=== PATIENT | female | born 1955 | race Caucasian/White ===

== ENCOUNTER 2016-07-09 11:45 | Emergency (ER) | payer BC, OTHER ==
--- NOTE | ~2016-07-09 | CR173 ---
[facility] A Service of [facility] & [facility] / [facility] RADIOLOGY TEXT RESULTS PATIENT: FATIMAH BASSETT LOCATION: CFTX : 54 UNIT #: [id number] AGE: [address]: SHERICE BOYD SEX: F ORDER DR: [id number] [facility] [address] [place], [place] [address] [id number] E MR#: [id number] Acc #: [id number] NAME: FATIMAH BASSETT. : 1955 SEX: F STUDY DATE/TIME: 07/09/2016 11:18 UNIT: [facility] ROOM: STUDY DESCRIPTION: CR Knee 3 Views Rt Attending Physician: Sherice Boyd Aprn Ordering Physician: Ed Shawn Parra M.D. Primary Care Physician: Buck Milan M.D. MEDICAL IMAGING REPORT This report is preliminary unless electronic signature is present EXAM Right knee HISTORY Pain and swelling since last night after fall FINDINGS 3 views of the right knee were obtained. There is mild narrowing of the medial joint compartment with osteophyte formation from the femoral condyle and tibial plateau. There is some spurring of the patella and there is a small effusion. IMPRESSION 1. Degenerative change in the patellofemoral joint and the medial joint compartment. 2. Small effusion. 3. Otherwise, normal. Dictated by... Fredy Paz M.D. THIS IS AN ELECTRONICALLY VERIFIED REPORT Fredy Paz M.D. at 07/09/2016 3:13 PM FEL/to TD: 07/09/2016 14:11 JOB #: [id number] MEDICAL IMAGING REPORT COPY
--- NOTE | ~2016-07-09 | CR172 ---
[facility] A Service of [facility] & [facility] RADIOLOGY TEXT RESULTS PATIENT: FATIMAH BASSETT LOCATION: CFTX : 54 UNIT #: [id number] AGE: [address]: SHERICE BOYD SEX: F ORDER DR: [id number] [facility] [address] [place], [place] [address] [id number] E MR#: [id number] Acc #: [id number] NAME: FATIMAH BASSETT. : 1955 SEX: F STUDY DATE/TIME: 07/09/2016 11:19 UNIT: [facility] ROOM: STUDY DESCRIPTION: CR Knee 3 Views Lt Attending Physician: Sherice Boyd Aprn Ordering Physician: Jorge Driscoll M.D. Primary Care Physician: Buck Milan M.D. MEDICAL IMAGING REPORT This report is preliminary unless electronic signature is present EXAM Left knee INDICATION Left knee pain after fall last night with injury. FINDINGS AP and lateral views of the left knee were obtained. There is a left knee prosthesis present compared to 12/21/2014. There is no fracture or effusion. IMPRESSION Status post left knee replacement. Otherwise normal. Dictated by... Fredy Paz M.D. THIS IS AN ELECTRONICALLY VERIFIED REPORT Fredy Paz M.D. at 07/09/2016 3:13 PM JANELLE/mayte TD: 07/09/2016 14:19 JOB #: [id number] MEDICAL IMAGING REPORT COPY
--- NOTE | ~2016-07-09 | CR253 ---
[facility] A Service of [facility] & [facility] RADIOLOGY TEXT RESULTS PATIENT: FATIMAH BASSETT LOCATION: CFTX : 54 UNIT #: [id number] AGE: [address]: SHERICE BOYD SEX: F ORDER DR: [id number] [facility] [address] [place], [place] [address] [id number] E MR#: [id number] Acc #: [id number] NAME: FATIMAH BASSETT. : 1955 SEX: F STUDY DATE/TIME: 07/09/2016 11:18 UNIT: [facility] ROOM: STUDY DESCRIPTION: CR Tibia and Fibula 2 Views Rt Attending Physician: Sherice Boyd Aprn Ordering Physician: Ed Doctor [id number] [facility] Primary Care Physician: Buck Milan M.D. MEDICAL IMAGING REPORT This report is preliminary unless electronic signature is present EXAM Right tibia and fibula. HISTORY Pain and swelling since last night after falling. FINDINGS There is no evidence of fracture, dislocation, or radiopaque foreign body. IMPRESSION Normal right tibia and fibula. Dictated by... Fredy Paz M.D. THIS IS AN ELECTRONICALLY VERIFIED REPORT Fredy Paz M.D. at 07/09/2016 3:13 PM JANELLE/sylwia TD: 07/09/2016 14:09 JOB #: [id number] MEDICAL IMAGING REPORT COPY
[~2016-07-09 11:45] MED LIST: ACETAMINOPHEN PO; ADVAIR INH; ALAVERT10 MG PO; ALBUTEROL17 GM INH; ALBUTEROL17 GM NEB; ALPRAZOLAM PO; AMITRYPTYLINE PO; ASPIRIN81 MG PO; CELEXA PO; CIPRO PO; COREG; CRESTOR5 MG; DICLOFENAC SODI50 MG PO; DUONEB 2.5-0.5 M3 ML NEB; EC-NAPROSYN500 MG PO; HCTZ PO; KCL PO; KETOPROFEN PO; MOBIC; NEURONTIN; PRISTIQ50 MG; REGLAN PO; ROBAXIN PO; TYLOX1 CAP 5/50 PO; ZESTORETIC; ZOCOR; ZOFRAN8 MG PO
[2016-09-29] MEDS ORDERED: GABAPENTIN300 M2 PO (10:14)
[2016-09-29] MEDS ORDERED: ASPIRIN81 M2 PO (10:15)
[2016-09-29] MEDS ORDERED: COMBIVENT RESPIM4 GM INH (10:29)
[2016-10-08] MEDS ORDERED: PRAVASTATIN SOD40 MG PO (16:35)
[2016-10-08] MEDS ORDERED: PRINIVIL10 MG PO (16:35)
[2016-10-08] MEDS ORDERED: AMITRYPTYLINE PO (16:36)
[2016-10-08] MEDS ORDERED: CYMBALTA30 M1 PO (16:36)
[2016-10-08] MEDS ORDERED: MOBIC15 MG PO (16:36)
[2016-10-08] MEDS ORDERED: ROBAXIN500 MG PO (16:37)
== END 2016-07-09 12:48 | disposition home or self-care (01) ==
LOC: CFTX 11:45
DX: S80.02XA Contusion of left knee, initial encounter (principal); S80.01XA Contusion of right knee, initial encounter; M25.461 Effusion, right knee; E78.5 Hyperlipidemia, unspecified; I10 Essential (primary) hypertension; Z96.652 Presence of left artificial knee joint; W19.XXXA Unspecified fall, initial encounter; Y92.009 Unspecified place in unspecified non-institutional (private) residence as the place of occurrence of the external cause
CPT/HCPCS: 29530; 73562; 73590; 99284

== ENCOUNTER → 2016-09-29 | Outpatient (CLI) | payer BC ==
[~2016-09-29] MED LIST changes: +ASPIRIN81 M2 PO; +COMBIVENT RESPIM4 GM INH; +CYMBALTA30 M1 PO; +GABAPENTIN300 M2 PO; +MOBIC15 MG PO; +PERCOCET10 PO; +PRAVASTATIN SOD40 MG PO; +PRINIVIL10 MG PO; +ROBAXIN500 MG PO; +XARELTO10 MG PO
--- NOTE | ~2016-09-29 | EKG ---
PATIENT: FATIMAH BASSETT UNIT #: [id number] Ventricular Rate: 78 BPM Atrial Rate: 78 BPM P-R Interval: 168 ms QRS Duration: 88 ms Q-T Interval: 374 ms QTC Calculation(Bezet): 426 ms P [place]: 66 degrees Calculated R [place]: 25 degrees Calculated T [place]: 52 degrees Diagnosis Line: Normal sinus rhythm Diagnosis Line: Normal ECG Diagnosis Line: No previous ECGs available Diagnosis Line: Confirmed by SHANNEN DALE MD ([id number]) on Diagnosis Line: 10/01/2016 8:44:07 AM INTERPRETING MD: SUYAPA ASHFORD
[2016-09-29 10:30] LABS: HEMATOCRIT 36.5 % (35.0-45.0); HEMOGLOBIN 12.1 gm/dL (12.0-16.0); MEAN CELL VOLUME 88.7 FL (83-96); MEAN CORPUSCULAR HEMOGLOBIN 29.3 PG (28-34); MEAN PLATELET VOLUME 9.1 FL (6.5-11.5); RED BLOOD COUNT 4.12 X10e (3.90-5.30); RED CELL DISTRIBUTION WIDTH 12.8 % (11.0-15.5)
[2016-09-29 10:51] LABS: URINE APPEARANCE CLEAR; URINE BILIRUBIN NEG (NEG); URINE BLOOD NEG (NEG); URINE COLOR YELLOW; URINE GLUCOSE NEG (NEG); URINE KETONE NEG (NEG); URINE LEUKOCYTE ESTERASE TRACE (NEG); URINE NITRATE NEG (NEG); URINE PH 5.5 (5-8); URINE PROTEIN NEG (NEG); URINE SPECIFIC GRAVITY 1.014 (1.003-1.035); URINE UROBILINOGEN 0.2 MG/DL (NEG)
[2016-09-29 10:53] LABS: URBCS1 AUWI 0-2 /[HPF] (0-2); URINE BACTERIA AUWI NEG (NEGATIVE); URINE SQUAMOUS EPITHELIAL CELL NONE SEEN /[HPF]; UWBCS1 AUWI 0-2 (0-5)
[2016-09-29 10:54] LABS: CULTURE INDICATED? NO; URINE SOURCE CLEAN CATCH
[2016-09-29 10:59] LABS: BUN/CREATININE RATIO 28.33; CALCIUM SERUM 8.9 mg/dL (8.4-10.2); CREATININE SERUM 0.6 mg/dL (0.6-1.4); GLOM FILT RATE Estimated 98.4 mL/min (>60); POTASSIUM 3.6 mmol/L (3.5-5.1)
== END | disposition home or self-care (01) ==
LOC: CAMB 09:28
PROVIDERS: Orthopaedic Surgery
DX: Z01.818 Encounter for other preprocedural examination (principal); M17.11 Unilateral primary osteoarthritis, right knee; I10 Essential (primary) hypertension
CPT/HCPCS: 36415; 80048; 81003; 85027; 87070; 93005

== ENCOUNTER 2016-10-10 05:22 | Inpatient (IN) | payer BC ==
--- NOTE | ~2016-10-10 | DS ---
Unit #: [id number] #: [id number] Patient: FATIMAH BASSETT X Con Arnold MD DISCHARGE SUMMARY
--- NOTE | ~2016-10-10 | CO ---
Unit #: [id number] #: [id number] Patient: FATIMAH BASSETT [id number] [address] [place], [place] [address] [id number] I MR#: [id number] NAME: FATIMAH BASSETT ROOM: 463 Age: 60 Sex: F Admission Date: 10/10/2016 : 1955 Attending Physician: Rashawn Arnold M.D. Primary Care Physician: Buck Milan M.D. Consultation Date: 10/12/2016 CONSULTATION REPORT HISTORY OF PRESENT ILLNESS A 60-year-old white female with history of coronary artery disease, asthma, osteoarthritis, hyperlipidemia, major depressive disorder, hypertension, admitted on 10/10/2016 for an elective right total knee replacement, now currently on postop day #2. Consulted for hypotension, BP currently 97/65, symptomatic with orthostatic like symptoms, although, her heart rate is 75, but she is in bed. She has been afebrile. Her other vital signs were stable. CBC this morning shows hemoglobin of 10. There has been no postop BMP. She has no Luna catheter in. Preop EKG shows normal sinus rhythm. Her last dose of lisinopril was given at 2100 hours last night with a dose of 10 mg she is on no other antihypertensives but she is receiving large doses of narcotics and Benadryl for associated itching. Postop, she has had no other complaints. She has had some nausea, but no vomiting. She has had some flatus, but no bowel movement and has no other complaints at this time other than obviously the right knee pain which is in fair control with her current medications. ALLERGIES She has stated allergies to morphine, hydrocodone, Dilaudid, and codeine. MEDICATIONS Prior to admission; gabapentin 300 mg t.i.d., aspirin 81 mg daily, Combivent Respimat two puffs q.2 to 4 p.r.n., pravastatin 40 mg daily, Prinivil 10 mg daily, Cymbalta 30 mg daily, amitriptyline 10 mg q.h.s., Mobic 15 mg daily, Robaxin 500 mg t.i.d. p.r.n. PAST MEDICAL HISTORY She has a history of coronary artery disease, asthma, hyperlipidemia, hypertension, osteoarthritis, major depressive disorder. PAST SURGICAL HISTORY Previous left total knee replacement, right total knee replacement as above, she has had hiatal hernia repair, cholecystectomy, , carpel tunnel, tubal ligation. SOCIAL HISTORY Nonsmoker, nondrinker. No street drug use. Employed in the [employer]. PHYSICAL EXAMINATION GENERAL: She is awake, alert, oriented x3, in no acute distress. VITAL SIGNS: Afebrile, pulse 75, respirations 18, O2 saturation 90% on room air, blood pressure 97/65. HEENT: Unremarkable. Unit #: [id number] #: [id number] Patient: FATIMAH BASSETT NECK: Supple without JVD, bruits, adenopathy, or thyromegaly. CHEST: Clear to auscultation. HEART: Has regular rate and rhythm without any murmurs, rubs, or gallops. ABDOMEN: Soft, nondistended with somewhat tympanitic, but positive bowel sounds. No hepatosplenomegaly. EXTREMITIES: Showed no clubbing, cyanosis, or edema. The right knee is stressed at this time, but there is no distal edema. Her right foot is neurovascularly intact. DIAGNOSTIC STUDIES CARDIOVASCULAR STUDIES: Again, her preop EKG showed normal sinus rhythm, was otherwise within normal limits. LABORATORY RESULTS: Hemoglobin this morning was 10.1, the rest of the CBC was normal. No BMP has been done. IMPRESSION 1. Postop hypotension. 2. Status post right total knee replacement. 3. Coronary artery disease. 4. Asthma. 5. Osteoarthritis. 6. Major depressive disorder. 7. Hyperlipidemia. 8. Status post previous left total knee replacement. PLAN Discontinue lisinopril, hold Mobic, check BMP, given IV fluid bolus of 250 mL/hour and then 100 mL/hour thereafter. She already has DVT prophylaxis in the form of Xarelto and an incentive spirometer at the bedside, which I encouraged her to use. Further evaluation pending the results of the above. Dictated by... Buck Mialn M.D. DEZ/donal TD: 10/13/2016 01:33 JOB #: [id number] CONSULTATION REPORT Page 1 of 1 X Buck Milan MD CONSULTATION REPORT
--- NOTE | ~2016-10-10 | OR ---
Unit #: [id number] #: [id number] Patient: FATIMAH BASSETT [id number] [address] [place], [place] [address] [id number] I MR#: [id number] NAME: FATIMAH BASSETT ROOM: [facility] Date of Procedure: 10/10/2016 Admission Date: 10/10/2016 Surgeon: Rashawn Arnold M.D. : 1955 Attending Physician: Rashawn Arnold M.D. Primary Care Physician: Buck Milan M.D. OPERATIVE REPORT PREOPERATIVE DIAGNOSIS Right knee osteoarthritis. POSTOPERATIVE DIAGNOSIS Right knee osteoarthritis. PROCEDURE PERFORMED Total knee arthroplasty, right knee. LACE BURN OUT TENDER Elvira Cárdenas. IMPLANTS USED 1. DePuy ATTUNE #4 narrow femur. 2. DePuy ATTUNE #3 tibial tray. 3. DePuy 32 mm patella. 4. DePuy 6 mm fixed bearing poly insert. DESCRIPTION OF PROCEDURE The patient was taken to the operating room and placed in supine position. After adequate induction of general anesthesia and an adductor canal block, she was prepped and draped in a sterile fashion. A midline incision was made and the extensor mechanism was exposed through full-thickness flap, so the median parapatellar incision was made and the medial periosteum was elevated. A 3/4-inch curved elevator was then used to remove the capsule from the proximal tibia and recessed the deep medial collateral ligament medially. The same was done laterally to release the capsule. A partial resection of the retropatellar fat pad was removed to improve visualization. The osteophytes were removed from the distal femur and the proximal tibia. The knee was then flexed and a drill was used to open the femoral canal. The distal femoral cutting guide was placed in 5 degrees of valgus to resect 9 mm distally. The femur was then cut and the external tibial guide was then used to cut 9 mm from the unaffected lateral side with great care taken to avoid varus or valgus cut. Once the block was pinned in place, alignment rods were checked to make sure our cut was in position before the bone was actually cut with retractors protecting the posterior aspect of the knee on both sides and retractor protecting the PCL. The tibial surface was cut. It was then measured with the calipers 9 mm taken off the lateral side, 3.5 mm were taken off the posterior aspect by the posterior cruciate ligament. At this point, our extension gap was checked. We could get a 6 mm insert with 1 to 2 mm of opening both medially and laterally. The femur was then flexed. The Unit #: [id number] #: [id number] Patient: FATIMAH BASSETT measured femoral guide was placed onto the distal femur in 3 degrees of valgus, it measured a little over 4 mm on the guide. Pins were placed. The #4 block was placed, but the flexion space was too loose. A 5 mm guide was then placed and it made our flexion gap too tight. Therefore, the size 4 block was then dropped 1.5 mm posterior and this gave us an excellent flexion gap, which perfectly matched our extension gap. It was checked with an Demetris wing and found not to notch, therefore the distal femur was cut using a 4. Trial was placed. The femur was brought into full extension with the 5 mm insert on the tibia. It was then re-trialed with a 6 and found to go into full extension and have perfect flexion stability with no liftoff of the tray anteriorly. Therefore, it was decided to go with a size 4 narrow femur and to go with a 6 mm poly insert. The tibia was examined and a size 3 tray was used. Rotation of the tibial tray was set by flexing and extending the knee. The keel was then punched after drilling the tibia. The trial implants were put in place and the patella was addressed. The patella was found to be 20.5 mm thick, therefore a june was used to take only 7.5 mm off the patella. A standard 9.5 mm cut would have left us with an 11 mm thickness on the patella, which was too thin. Again, june was used and 7.5 mm was cut using the guide. It was sized and trialed and found to track normally. At this point, the joint was copiously injected with local. The bones were thoroughly washed and dried. The permanent implants were then cemented in place. It was trialed again with a 6 mm insert, which gave full extension and normal stability in flexion. Therefore, a size 6 poly was inserted. The knee was copiously irrigated with bacitracin containing solution. The tourniquet was released. Tranexamic acid was given prior to the release. Hemostasis was obtained. The joint was then soaked with a Betadine paint solution, 500 mL of saline and 17.5 mL of Betadine paint. This was left for 5 minutes. Hemostasis was again checked. The extensor mechanism was closed in flexion using #1 Vicryl. The skin was closed with 2-0 and 3-0 Vicryl, and Prineo dressing. She tolerated the procedure well and sent to recovery room, stable. Dictated by... Jayson Mansfield/donal TD: 10/10/2016 23:57 JOB #: [id number] OPERATIVE REPORT Page 1 of 1 X Con Arnold MD X PROCEDURE OPERATIVE NOTE
[~2016-10-10 05:22] MED LIST changes: -PERCOCET10 PO; -XARELTO10 MG PO
[2016-10-11 03:55] LABS: BASOPHIL% 0.3 % (0-2.5); EOSINOPHIL% 0.1 % (0.0-7.0); HEMATOCRIT 34.9 % (35.0-45.0); HEMOGLOBIN 11.2 gm/dL (12.0-16.0); LYMPHOCYTE% 15.7 % (17.0-45.0); MEAN CORPUSCULAR HEMOGLOBIN 29.2 PG (28-34); MEAN CORPUSCULAR HGB CONC 32.1 g/dL (30-36); MEAN PLATELET VOLUME 9.6 FL (6.5-11.5); MONOCYTE# 1.1 X10e3 (0-1.0); NEUTROPHIL# 9.4 X10e3 (1.5-7.1); NEUTROPHIL% 74.9 % (40-75); PLATELET COUNT 218 X10e3 (140-420); RED BLOOD COUNT 3.83 X10e (3.90-5.30); RED CELL DISTRIBUTION WIDTH 13.2 % (11.0-15.5); WHITE BLOOD COUNT 12.6 X10e3 (4.0-10.5)
[2016-10-11 03:58] LABS: DIFF IND NO
[2016-10-12 03:28] LABS: BASOPHIL% 0.4 % (0-2.5); EOSINOPHIL# 0.2 X10e3 (0-0.7); HEMATOCRIT 30.6 % (35.0-45.0); HEMOGLOBIN 10.1 gm/dL (12.0-16.0); LYMPHOCYTE# 1.7 X10e3 (1.0-3.5); LYMPHOCYTE% 22.8 % (17.0-45.0); MEAN CELL VOLUME 89.4 FL (83-96); MEAN CORPUSCULAR HEMOGLOBIN 29.5 PG (28-34); MEAN PLATELET VOLUME 9.2 FL (6.5-11.5); MONOCYTE# 0.9 X10e3 (0-1.0); MONOCYTE% 12.4 % (3.0-12.0); NEUTROPHIL# 4.6 X10e3 (1.5-7.1); NEUTROPHIL% 61.4 % (40-75); PLATELET COUNT 203 X10e3 (140-420); RED BLOOD COUNT 3.43 X10e (3.90-5.30); RED CELL DISTRIBUTION WIDTH 13.2 % (11.0-15.5); WHITE BLOOD COUNT 7.4 X10e3 (4.0-10.5)
[2016-10-12 03:33] LABS: DIFF IND NO
[2016-10-12 12:58] LABS: BUN/CREATININE RATIO 21.11; CALCIUM SERUM 8.1 mg/dL (8.4-10.2); CREATININE SERUM 0.9 mg/dL (0.6-1.4); GLOM FILT RATE Estimated 69.1 mL/min (>60); POTASSIUM 3.9 mmol/L (3.5-5.1)
[2016-10-13 02:40] LABS: BASOPHIL% 0.6 % (0-2.5); EOSINOPHIL# 0.3 X10e3 (0-0.7); HEMATOCRIT 30.4 % (35.0-45.0); HEMOGLOBIN 10.1 gm/dL (12.0-16.0); LYMPHOCYTE# 1.5 X10e3 (1.0-3.5); LYMPHOCYTE% 24.3 % (17.0-45.0); MEAN CELL VOLUME 89.9 FL (83-96); MEAN CORPUSCULAR HEMOGLOBIN 29.8 PG (28-34); MEAN CORPUSCULAR HGB CONC 33.2 g/dL (30-36); MEAN PLATELET VOLUME 8.9 FL (6.5-11.5); MONOCYTE# 0.6 X10e3 (0-1.0); MONOCYTE% 8.8 % (3.0-12.0); NEUTROPHIL# 3.9 X10e3 (1.5-7.1); NEUTROPHIL% 61.3 % (40-75); PLATELET COUNT 192 X10e3 (140-420); RED BLOOD COUNT 3.39 X10e (3.90-5.30); WHITE BLOOD COUNT 6.3 X10e3 (4.0-10.5)
[2016-10-13 02:41] LABS: DIFF IND NO
[2016-10-13] MEDS ORDERED: XARELTO10 MG PO (11:48)
[2016-10-13] MEDS ORDERED: PERCOCET10 PO (11:51)
== END 2016-10-13 12:45 | disposition home health service (06) | DRG 470 ==
LOC: CSUR 05:22 → CPACUOF 08:49 → C4B 11:45 → C4C 10-11 15:09 → C4B 10-11 15:09 → C4C 10-13 12:45
PROVIDERS: Internal Medicine; Orthopaedic Surgery
PROC: 0SRC0J9 Replacement of Right Knee Joint with Synthetic Substitute, Cemented, Open Approach (ICD-10-PCS; principal; 2016-10-10 07:30)
DX: M17.11 Unilateral primary osteoarthritis, right knee (principal); I95.81 Postprocedural hypotension; I10 Essential (primary) hypertension; J45.909 Unspecified asthma, uncomplicated; I25.10 Atherosclerotic heart disease of native coronary artery without angina pectoris; E78.5 Hyperlipidemia, unspecified; F32.9 Major depressive disorder, single episode, unspecified; Z88.5 Allergy status to narcotic agent; Z96.652 Presence of left artificial knee joint; Z90.49 Acquired absence of other specified parts of digestive tract; Z98.51 Tubal ligation status; F41.9 Anxiety disorder, unspecified; Z87.891 Personal history of nicotine dependence; Z80.9 Family history of malignant neoplasm, unspecified; Z82.49 Family history of ischemic heart disease and other diseases of the circulatory system
CPT/HCPCS: 80048; 85025; 94010; 94760; 97110; 97116; 97161; 97165; 97530; 97535; C1713; C1776; G8987-GO; G8988-GO; J0131; J0171; J0690; J0735; J1100; J1170; J1200; J1885; J2250; J2405; J2795; J3010; J3370